=== PATIENT | male | born 1970 ===

== ENCOUNTER 2016-05-30 08:15 | Day surgery (SDC) | payer OTHER ==
[2016-04-14 01:59] VITALS: BMI 24.0
[2016-05-30] MEDS ORDERED: Bupivacaine 0.5% Inj(30mL) ONE (10:42)
[2016-05-30] MEDS ORDERED: ceFAZolin IV 1 gm in Dextrose 50 ML IVPB ONE (10:42)
[2016-05-30] MEDS ORDERED: Lidocaine 1% Inj (20ml) ONE (10:43)
[2016-05-30] MEDS ORDERED: Propofol 10 mg/ml Inj (20 ML) ONE (10:43)
[2016-05-30] MEDS ORDERED: Midazolam 2 MG/2 ML VIAL ONE (10:43)
[2016-05-30] MEDS ORDERED: Etomidate 20 mg/10ml Inj IV ONE (10:48)
[2016-05-30] MEDS ORDERED: Dexamethasone 4 mg/1 ml ONE (11:54)
[2016-05-30] MEDS ORDERED: Bacitracin 500 Units/gm Oint Foilpak UD ONE (11:54)
[2016-05-30] MEDS ORDERED: ePHEDrine 50 mg/ml Inj ONE (12:54)
[2016-05-30] MEDS ORDERED: Oxycodone/Acetaminophen 5/325 mg Tab PO PRN ×2 (15:21)
--- NOTE | 2016-05-30 15:25 | PCM.SURG1 ---
Surgeon's Initial Post Op Note - Surgeon's Notes Surgeon: luis e Equipment Mechanic: leonidas yarbrough Type of Anesthesia: General LMA Anesthesia Administered By: neelam Pre-Operative Diagnosis: Left hallux valgus, left 2nd digit hammertoe, left 2nd Mt elongation Operative Findings: see dictation. size 3 osteomed spacer OBW,. 3x orthosorb. 2.0 x 14mm osteomed cannulated Post-Operative Diagnosis: Same Operation Performed: Left opening base wedge ost. Left reverdin laird decompressio. left 2nd MT zachariah. left 2nd pipj ap Specimen/Specimens Removed: bone Estimated Blood Loss: EBL {In ML}: 10 Blood Products Given: N/A Drains Used: No Drains Post-Op Condition: Good Date of Surgery/Procedure: 05/30/16 Time of Surgery/Procedure: 15:25
--- NOTE | 2016-05-30 15:27 | CP.PCM.DIS ---
Provider - Provider Attending physician: Mt Gomez DPM Time Spent in preparation of Discharge (in minutes): 25 Diagnosis - Discharge Diagnosis (1) Hallux valgus (acquired), left foot Status: Acute (2) Hammertoe of left foot Status: Acute Hospital Course - Hospital Course Hospital Course: patient tolerated aneshtesia and procedure well and was transported to the PACU with VSS and NVSI to the left foot. patient is to remain NWB to the left foot w/ crutches rx in the chart ice/elevate as needed Call dr gomez for f/u appt. Discharge Exam - Skin Skin Exam: Normal Color, Warm - Additional Findings Additional findings: Neurovascular status intact to the left foot. Discharge Plan - Follow Up Plan Condition: GOOD Disposition: HOME/ ROUTINE Additional Instructions: patient is to remain NWB to the left foot w/ crutches rx in the chart ice/elevate as needed Call dr gomez for f/u appt. Referrals: Mt Gomez DPM [[facility]] -
[2016-05-30] MEDS ORDERED: HYDROmorphone 0.5 mg/0.5 ml ISec IVP PRN (15:28)
[2016-05-30] MEDS ORDERED: Lactated Ringer's 1,000 ML IV SCH (15:30)
[2016-05-30] MEDS ORDERED: Lactated Ringer's 1,000 ML IV ONE (15:33)
--- NOTE | 2016-05-30 15:47 | RAD ---
Left foot radiographs Comparison: None available Indication: Status post left foot surgery Findings: Images are obtained through a splint which obscures osseous detail. Metallic plate and screw fixation of the proximal 1st metatarsal without significant callus formation at the osteotomy site. Metallic screw noted at the distal 2nd metatarsal. Alignment appears satisfactory. Soft tissue swelling. Impression: Unremarkable postoperative appearance of the left foot as above.
[2016-05-30 17:23] VITALS: BP 135/87; PULSE 81; RESP 16; TEMP 97.6; O2SAT 95
--- NOTE | 2016-06-04 12:49 | OP ---
PROCEDURE DATE: 05/30/2016 PREOPERATIVE DIAGNOSES: 1. Left foot hallux valgus with increased proximal ariticular set angle 2. Elongated second metatarsal. 3. Hammering of 2nd digit POSTOPERATIVE DIAGNOSES: 1. Left foot hallux valgus with increased proximal ariticular set angle 2. Elongated second metatarsal. 3. Hammering of 2nd digit PROCEDURE: 1. Open base wedge osteotomy of left first metatarsal. 2. Left foot decompression Jose M Cutler. 3. Decompression osteotomy, second metatarsal. 4. Left foot PIPJ arthroplasty SURGEON: Mt Gomez DPM. MILLED LUMBER GRADER: Dr. Lwoery, PGY-2, Dr. Bentley, PGY-3. MANAGER LINUX: Dr. Velázquez ANESTHESIA: General sedation. INDICATIONS: The patient is a 45-year-old male with the indications listed above. After careful explanation of risks benefits and complication to the proposed procedure the patient signed the consent form. All questions and concerns were addressed at this time. Prior to taking the patient to the OR NPO status was verified and pre op antibiotics were given. PROCEDURE: The patient was brought to the operating room placed on the operative table in supine position. A pneumatic ankle tourniquet was placd on the patients left ankle in the supramalleolar posotion at 250 mm Hg. Following induction of general sedation the left foot was prepped and draped int he normal steril manner and the procedure began. PROCEDURE #1: 1. Open base wedge osteotomy of left first metatarsal. Grossly it is noted there is a very large intermetatarsal angle with increased PASA to the patient's left foot. There is alos noted to be a left second digit hammering with elongation of metatarsal. First, attention was directed to the dorsomedial aspect of the patient's left foot overlying the first metatarsal. Utilizing a #15 blade a roughly 5 cm long incision was made overlying first metatarsal parallel and medial to the extensor tendon. The incision was deepened to the level of periosteum capsule. Attention was directed to the lateral aspect of the first metatarsal where utilizing a 15 blade, a lateral release and capsulotomy was performed to release the adductor tendon and suspensory ligaments. Following there was noted to be an increase in transverse plane of motion that would allow for addequate soft tissue reduction later in the procedure. Following this a periosteal incision was made in a linear fashion overlying the 1st MT extening from the base of the 1st MT to over the 1st MPJ. An L type capsulotomy was formed and the capsule and periosteum was reflected away from the 1st MT exposing the entire base and head of the 1st MT. Following a sagitall saw was obtained and the medial eminence was first resected and passed from the field w/o complication. Following attention was directed to the proximal aspect of the 1st MT roughly 1.5 Cm distal from the MT cuneiform joint. A k-wire was then inserted to act as a guide wire from dorsal to plantar through the 1st MT in this region in a fashion perpendicular to the weight bearign surface of the foot. Following utilizing the sagittal saw a cut was made from medially to lateral across the 1st MT in line with the k-wire guide. This cut only broke the medial cortex of the 1st MT and kept the lateral aspect in tact to act as a hinge. Following this insertion of osteotomes were performed into the osteotomy site to allow for opening and a a halo distractor was then placed to hold the opening of the osteotomy. Following this a size 3 osteomed opening base wedge plate was inserted into the osteotomy site and spanning the site to hold correct positioning. The plate was the locked into position with two 18mm 2.7 osteomed screws and two 14 mm 2.7 osteomed screws. The site was then flushed with copious amounts of normal sterile saline. The positioning was verified under c-arm and the k wire was removed. . PROCEDURE #2. Decompressional jose m cutler Attention was then directed distally to the 1st MT head where utilizing a sagittal saw a through and through cut was first made in the plantar surface of the 1st MT head just dorsal to the sesamoids allowing them to be protected from further cuts. A second cut was made perpendicular to this cut, starting at the apex and oriented dorsally allowing fora through and through L shaped osteotomy. Following this cut a wedge shaped cut was make proximally to the second osteotomy site to allow for a rotation of the 1st MT head and to allow for decompression to occur across the osteotomy site. The osteotomy sit was then fixated with 3 crossing orthosorb pins. The reverdin cut and opening base wedge osteotomy sites were then packed with cortical bone and overlying demineralized bone matrix to allow for the maximal healing potential across the sites. The wound was then flushed with normal saline and closed with 2-0. 3-0. and 4-0 vicryl and 4-0 nylon in the normal manner. PROCEDURE #3. Left foot second digit Lianna osteotomy A roughly 3 cm curvilinear incision was made at the level of the 2nd MTPJ extening from proxima to distal ending after the proximal interphalangeal joint to allow for a later arthroplasty. This incision was deepened to the level of the joint capsule making sure to retract the neurovascular structures. A linear capsular incision was then made and freed from the metatarsal head to expose the surgical field. Utilizing McClamary elevator, the plantar ligaments were then freed and at this time utilzing the sagittal saw a dorsal distal to plantar proximal osteotomy was made starting most dorsal part of the articular surface to make a cut parallel to the weight bearing surface of the bone allowing for decompression from the joint, the fragment was then temporarily fixated with a K-wire and 14 mm cannulated OsteoMed screw was placed across the osteotomy site. There was noted to be good compression across the osteotomy site once the k wire was removed. The remaining dorsal was then eminence was resected. Following an intraop decision was made to release the extensor tendon which allowed for good sagitall plane correction of the 2nd digit and this tendon was then re sutured with 2-0 vicryl. PROCEDURE #4: PIPJ arthroplasty, second digit. Utilizing the same incision, a transverse tenotomy was performed overlying the proximal interphalangeal joint, medial and lateral ligaments were released to expose the head of the proximal phalanx. At this time, utilizing a sagittal saw, the head of the proximal phalanx was resected and passed from the operative field. This left good decompression of the digit to sit in a rectus position. A K-wire was retrograded out the digit and back across the metatarsophalangeal joint, although it is to be noted this K wire was later removed to allow for complete vascularity to return to the digit which it did following removal of K-wire. The wound was flushed with saline. Closure was obtained with 3-0 vicryl, 4-0 Vicryl and 4-0 nylon. POSTOPERATIVE CONDITION: The patient tolerated anesthesia and procedure well, and will follow up with Dr. Gomez in his office later this week as previously discussed with patient. [facility] Mt Gomez DPM cc: [id number] TT: 05/31/2016 21:02:37 jn MTDD
== END 2016-05-30 17:20 | disposition home or self-care (01) ==
LOC: C.SDS 08:15
PROVIDERS: ATTEND Podiatrist Foot & Ankle Surgery
DX: M20.12 Hallux valgus (acquired), left foot (principal); Q79.9 Congenital malformation of musculoskeletal system, unspecified; M20.42 Other hammer toe(s) (acquired), left foot
CPT/HCPCS: 28285; 28296; 28308; 73620; 88304; 88311; 97116; 97161; J0690; J1885; J2250; J3010; J7120